=== PATIENT | female | born 1995 | race Caucasian/White ===

== ENCOUNTER 2019-09-13 16:11 | Emergency (ER) | payer SELFPAY ==
[2019-09-13] MEDS ORDERED: ONDANSETRON ODT 4 MG TAB ONE (16:20)
[2019-09-13 16:55] LABS: BILIRUBIN,URINE Negative (NEGATIVE); COLOR,URINE Dark Yellow (YELLOW); GLUCOSE, URINE (UA) Negative (NEGATIVE); KETONES,URINE Trace mg/dL (NEGATIVE); LEUKOCYTE ESTERASE ,URINE Small (NEGATIVE); NITRATE,URINE Negative (NEGATIVE); OCCULT BLOOD,URINE Large (NEGATIVE); PROTEIN,URINE POS 2+ mg/dL (NEGATIVE)
[2019-09-13 16:57] LABS: APPEARANCE,URINE CLOUDY (CLEAR)
[2019-09-13 17:00] LABS: HCG,QUAL RESULT NEGATIVE (NEGATIVE)
[2019-09-13 17:09] LABS: RAPID GROUP A STREP NEGATIVE (NEGATIVE)
[2019-09-13 17:37] LABS: BACTERIA,URINE Few /HPF (None Seen); MUCUS,URINE Few LPF (None Seen); RBC,URINE 26-50 /HPF (0-1); SQUAMOUS EPITHELIAL CELL,UR Moderate /HPF (0-2)
== END 2019-09-13 17:20 | disposition home or self-care (01) ==
LOC: EDH 16:11
DX: K52.9 Noninfective gastroenteritis and colitis, unspecified (principal); Z72.0 Tobacco use
CPT/HCPCS: 81001; 81025; 87804; 87880

== ENCOUNTER 2020-12-31 07:09 | Emergency (ER) | payer OTHER, SELFPAY ==
[2020-12-31] MEDS ORDERED: ACETAMINOPHEN 325 MG TAB ONE (08:08)
[2020-12-31 08:09] LABS: BASOPHILS % (AUTO) 0.3 % (0.0-5.0); EOSINOPHILS % (AUTO) 1.1 % (0.0-8.0); LYMPHOCYTES % (AUTO) 14.6 % (21.0-51.0); MEAN CORPUSCULAR HEMOGLOBIN 24.6 pg (27.0-33.0); MEAN CORPUSCULAR HGB CONC 29.7 g/dL (32.0-36.0); MEAN CORPUSCULAR VOLUME 82.8 fL (79-99); MONOCYTES % (AUTO) 10.8 % (3.0-13.0); NEUTROPHILS % (AUTO) 72.9 % (40.0-77.0); PLATELET COUNT (AUTO) 342 K/uL (130-400); RED BLOOD CELL COUNT(AUTO) 4.35 MIL/uL (4.00-5.50); RED CELL DISTRIBUTION WIDTH 16.8 % (11.0-15.5); WHITE BLOOD COUNT (AUTO) 7.1 K/uL (4.8-10.8)
[2020-12-31 08:10] LABS: APPEARANCE,URINE Cloudy (CLEAR); BILIRUBIN,URINE Negative (NEGATIVE); COLOR,URINE Yellow (YELLOW); GLUCOSE, URINE (UA) Negative (NEGATIVE); KETONES,URINE Trace mg/dL (NEGATIVE); LEUKOCYTE ESTERASE ,URINE Moderate (NEGATIVE); NITRATE,URINE Negative (NEGATIVE); OCCULT BLOOD,URINE Negative (NEGATIVE); PH,URINE 5.5 (5.0-8.0); PROTEIN,URINE Negative (NEGATIVE)
[2020-12-31 08:14] LABS: HCG,QUAL RESULT NEGATIVE (NEGATIVE)
[2020-12-31 08:16] LABS: CREATININE 0.8 mg/dL (0.5-1.5); POTASSIUM 3.5 mmol/L (3.5-5.1)
[2020-12-31 08:36] LABS: BACTERIA,URINE Moderate /HPF (None Seen); RBC,URINE 0-1 /HPF (0-1)
== END 2020-12-31 09:03 | disposition home or self-care (01) ==
LOC: EDH 07:09
DX: D64.9 Anemia, unspecified (principal); J02.9 Acute pharyngitis, unspecified; Z20.822 Contact with and (suspected) exposure to COVID-19
CPT/HCPCS: 36415; 80048; 81001; 81025; 84484; 85025; 87077; 87088; 87186; 87426; 87804 ×2; 87880; 93005; 99284; U0003

== ENCOUNTER 2024-05-27 20:59 | Emergency (ER) | payer SELFPAY ==
[~2024-05-27] VITALS: Ht 165.1 cm; Wt 83.9 kg
[2024-05-27] MEDS: BACITRACIN 1 EACH PACKET TP ONE (23:45)
[2024-05-28 00:02] VITALS: BP 116/70; PULSE 84; RESP 18; O2SAT 100
== END 2024-05-28 00:27 | disposition home or self-care (01) ==
LOC: EDH 20:59
DX: T24.111A Burn of first degree of right thigh, initial encounter (principal); T24.112A Burn of first degree of left thigh, initial encounter; E66.9 Obesity, unspecified; X08.8XXA Exposure to other specified smoke, fire and flames, initial encounter; Y93.G3 Activity, cooking and baking; Y92.090 Kitchen in other non-institutional residence as the place of occurrence of the external cause; Y99.8 Other external cause status
CPT/HCPCS: 16020; 99282

== ENCOUNTER 2024-06-08 12:43 | Emergency (ER) | payer SELFPAY ==
[~2024-06-08] VITALS: Ht 165.1 cm; Wt 83.9 kg
[2024-06-08] MEDS ORDERED: CEPH500B PO (14:35)
[2024-06-08] MEDS ORDERED: KETO10TA2 PO (14:35)
[2024-06-08] MEDS: cefTRIAXone 1G VIAL IVPB ONE (14:49)
[2024-06-08] MEDS: NEOMY SULF/BACITRA/POLYMYXIN B 1 EACH PACKET TP ONE (14:49)
[2024-06-08 14:53] VITALS: BP 124/72; PULSE 84; RESP 18; O2SAT 98
== END 2024-06-08 14:55 | disposition home or self-care (01) ==
LOC: EDH 12:43
DX: T24.212A Burn of second degree of left thigh, initial encounter (principal); T24.211A Burn of second degree of right thigh, initial encounter; Z79.899 Other long term (current) drug therapy; X08.8XXA Exposure to other specified smoke, fire and flames, initial encounter; Y93.89 Activity, other specified; Y92.89 Other specified places as the place of occurrence of the external cause; Y99.8 Other external cause status
CPT/HCPCS: 99283; 96374; 16000; J0696

== ENCOUNTER 2024-07-08 05:26 | Emergency (ER) | payer SELFPAY ==
[~2024-07-08] VITALS: Ht 165.1 cm; Wt 88.9 kg
[~2024-07-08 05:26] MED LIST: CEPH500B PO; KETO10TA2 PO
[2024-07-08 05:47] VITALS: TEMP 98.1
[2024-07-08] MEDS ORDERED: CEPH500B PO (05:54)
[2024-07-08] MEDS ORDERED: PERM60CR4 TP (05:54)
[2024-07-08] MEDS ORDERED: DiphenhydrAMINE HCL 50 MG/ML VIAL ONE (06:11)
[2024-07-08] MEDS: DiphenhydrAMINE HCL 50 MG/ML VIAL IM ONE (06:13)
[2024-07-08 06:54] VITALS: BP 106/57; PULSE 94; RESP 18; O2SAT 100
== END 2024-07-08 07:01 | disposition home or self-care (01) ==
LOC: EDH 05:26
DX: T14.8XXA Other injury of unspecified body region, initial encounter (principal); B86 Scabies; F31.9 Bipolar disorder, unspecified; F41.9 Anxiety disorder, unspecified; W57.XXXA Bitten or stung by nonvenomous insect and other nonvenomous arthropods, initial encounter; Y93.89 Activity, other specified; Y92.89 Other specified places as the place of occurrence of the external cause; Y99.8 Other external cause status
CPT/HCPCS: 99283; 96372; J1200

== ENCOUNTER 2025-01-07 13:00 | Emergency (ER) | payer SELFPAY ==
[~2025-01-07] VITALS: Ht 162.6 cm; Wt 90.7 kg
[~2025-01-07 13:00] MED LIST changes: +PERM60CR4 TP
[2025-01-07 13:01] VITALS: BP 142/93; PULSE 64; RESP 18; TEMP 97.1
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
[2025-01-07] MEDS: ondanSETRON 4MG INJ IVP ONE (13:30)
[2025-01-07] MEDS: 0.9%NACL 1000ML 1,000 ML IV ONE (13:30)
--- NOTE | 2025-01-07 13:39 | NUR ---
REFUSED VENIPUNCTURE FOR BLOOD DRAW. STATES FIRST WANTS MEDICATON FOR DISCOMFORT, WATER, AND TO LAY DOWN FLAT. PROVIDER SANTOS TEAGUE NP MADE AWARE.
[2025-01-07 16:53] LABS: BASOPHILS # (AUTO) 0.01 K/uL (0.00-0.20); BASOPHILS % (AUTO) 0.1 % (0.0-5.0); EOSINOPHILS # (AUTO) 0.02 K/uL (0.00-0.70); EOSINOPHILS % (AUTO) 0.3 % (0.0-8.0); HEMATOCRIT 42.1 % (36-48); IMMATURE GRANULOCYTE ABSOLUTE 0.02 K/uL (0-1); LYMPHOCYTES # (AUTO) 1.2 K/uL (1.0-4.8); LYMPHOCYTES % (AUTO) 14.8 % (21.0-51.0); MEAN CORPUSCULAR HEMOGLOBIN 29.8 pg (27.0-33.0); MEAN CORPUSCULAR HGB CONC 32.8 g/dL (32.0-36.0); MEAN CORPUSCULAR VOLUME 90.9 fL (79-99); MONOCYTES # (AUTO) 0.3 K/uL (0.1-1.0); NEUTROPHILS # (AUTO) 6.3 K/uL (1.8-7.7); NEUTROPHILS % (AUTO) 80.5 % (40.0-77.0); PLATELET COUNT (AUTO) 306 K/uL (130-400); RED BLOOD CELL COUNT(AUTO) 4.63 MIL/uL (4.00-5.50); RED CELL DISTRIBUTION WIDTH 12.6 % (11.0-15.5); WHITE BLOOD COUNT (AUTO) 7.8 K/uL (4.8-10.8)
[2025-01-07 17:01] LABS: CREATININE 0.8 mg/dL (0.5-1.0); POTASSIUM 3.7 mmol/L (3.5-5.1)
--- NOTE | 2025-01-07 17:15 | NUR ---
Nishant ley in EDM - 01/07/25 at 1725 by DANDY SPOKE TO CITLALY FROM [facility] AND SHE STATES PT MEETS INPATIENT CRITERIA AND WILL CALL BACK WHEN SHE FINDS PLACEMENT OR CALL BACK TO NOTIFY US IF THEY WILL NEED TO RE EVALUATE IN THE MORNING.
--- NOTE | 2025-01-07 17:25 | NUR ---
DOCUMENTED ON THE WRONG PATIENT. NOTE UNDONE.
[2025-01-07] MEDS ORDERED: IBUP-2077 PO (18:38)
[2025-01-07] MEDS ORDERED: CLIN-141 PO (18:38)
[2025-01-07] MEDS: CLINDAMYCIN 150 MG CAP PO ONE (19:17)
== END 2025-01-07 19:20 | disposition home or self-care (01) ==
LOC: EDH 13:00
DX: K02.9 Dental caries, unspecified (principal); F31.9 Bipolar disorder, unspecified; F41.9 Anxiety disorder, unspecified; Z79.899 Other long term (current) drug therapy
CPT/HCPCS: 99283; 96361; 96374; 80048; 83690; 85025; 36415; J7030; J2405

== ENCOUNTER 2025-05-09 19:37 | Emergency (ER) | payer SELFPAY ==
[~2025-05-09] VITALS: Ht 167.6 cm; Wt 78.9 kg
[~2025-05-09 19:37] MED LIST changes: +CLIN-141 PO; +IBUP-2077 PO
[2025-05-09 19:45] VITALS: BP 115/74; PULSE 68; RESP 16; TEMP 98.4
--- NOTE | 2025-05-09 19:47 | NUR ---
CALLED BY TRIAGE NURSE, SOON PATIENT WAS PLACED IN THE FAST TRACK AREA BY EMS, PATIENT AND THEIR LOVED ONE WALKED OUT THRU THE FRONT ER LOBBY.
== END 2025-05-09 19:50 | disposition left against medical advice (07) ==
LOC: EDH 19:37
DX: Z04.6 Encounter for general psychiatric examination, requested by authority (principal); Z53.21 Procedure and treatment not carried out due to patient leaving prior to being seen by health care provider